=== PATIENT | female | born 1985 | race African-American/Black ===

== ENCOUNTER 2017-11-11 09:43 | Outpatient (CLI) | payer OTHER | END 2017-11-11 09:44 | disposition home or self-care (01) | LOC: SC 09:43 | PROVIDERS: ATTEND Internal Medicine Pulmonary Disease | DX: G47.10 Hypersomnia, unspecified (principal); G47.8 Other sleep disorders; R06.83 Snoring; E66.9 Obesity, unspecified; Z68.31 Body mass index [BMI] 31.0-31.9, adult; G47.26 Circadian rhythm sleep disorder, shift work type | CPT/HCPCS: 99203; 99212 ==

== ENCOUNTER 2017-12-14 19:37 | Outpatient (CLI) | payer OTHER | END 2017-12-14 19:38 | disposition home or self-care (01) | LOC: SC 19:37 | PROVIDERS: ATTEND Internal Medicine Pulmonary Disease | DX: G47.33 Obstructive sleep apnea (adult) (pediatric) (principal) | CPT/HCPCS: 95810 ==

== ENCOUNTER 2017-12-15 10:59 | Outpatient (CLI) | payer OTHER | END 2017-12-15 11:00 | disposition home or self-care (01) | LOC: SC 10:59 | PROVIDERS: ATTEND Internal Medicine Pulmonary Disease | DX: G47.33 Obstructive sleep apnea (adult) (pediatric) (principal) | CPT/HCPCS: 99212; 99213 ==